=== PATIENT | male | born 1955 | race Caucasian/White ===

== ENCOUNTER 2017-04-13 07:51 | Emergency (ER) | payer MEDICAID ==
[~2017-04-13] VITALS: Ht 175.3 cm; Wt 97.3 kg
[2017-04-13] MEDS ORDERED: LISI-167 PO (08:23)
[2017-04-13] MEDS ORDERED: METF850T2 PO (08:23)
[2017-04-13] MEDS ORDERED: KETOROLAC 30 MG/1 ML ONE (08:25)
[2017-04-13] MEDS ORDERED: KETOROLAC 30 MG/1 ML IM ONE (08:30)
[2017-04-13 09:20] VITALS: BP 110/78
== END 2017-04-13 09:22 | disposition home or self-care (01) ==
LOC: ED 09:16
DX: S39.012A Strain of muscle, fascia and tendon of lower back, initial encounter (principal); M25.552 Pain in left hip; M79.652 Pain in left thigh; M54.16 Radiculopathy, lumbar region; E11.9 Type 2 diabetes mellitus without complications; X58.XXXA Exposure to other specified factors, initial encounter; Y93.89 Activity, other specified; Y92.89 Other specified places as the place of occurrence of the external cause; Y99.8 Other external cause status
CPT/HCPCS: 72110; 96372; 99284; J1885

== ENCOUNTER 2017-05-02 12:16 | Emergency (ER) | payer MEDICAID ==
[~2017-05-02] VITALS: Ht 175.3 cm; Wt 95.8 kg
[~2017-05-02 12:16] MED LIST: LISI-167 PO; METF850T2 PO
[2017-05-02] MEDS ORDERED: MORPHINE SULFATE 4 MG/ML, 1ML IVPush PRN (13:00)
[2017-05-02] MEDS ORDERED: ONDANSETRON 2MG/ML, 2ML IVPush ONE (13:00)
[2017-05-02] MEDS ORDERED: FAMOTIDINE 20 MG/2 ML IVP ONE (13:00)
[2017-05-02 13:26] LABS: ASPARTATE AMINO TRANSFERASE 42 U/L (15-37); BLOOD UREA NITROGEN 32 mg/dL (7-18)
[2017-05-02] MEDS ORDERED: MORPHINE SULFATE 4 MG/ML, 1ML ONE (13:29)
[2017-05-02] MEDS ORDERED: ONDANSETRON 2MG/ML, 2ML ONE (13:29)
[2017-05-02] MEDS ORDERED: FAMOTIDINE 20 MG/2 ML ONE (13:30)
[2017-05-02 13:32] LABS: IS PT STATUS REG ER OR PRE ER? YES
[2017-05-02 13:43] VITALS: BP 114/73
[2017-05-02] MEDS ORDERED: SODIUM CHLORIDE FLUSH 10ML SYR IVF ONE (14:00)
== END 2017-05-02 15:32 | disposition home or self-care (01) ==
LOC: ED 15:15
DX: S60.211A Contusion of right wrist, initial encounter (principal); K29.70 Gastritis, unspecified, without bleeding; I10 Essential (primary) hypertension; E11.9 Type 2 diabetes mellitus without complications; Z87.891 Personal history of nicotine dependence; X50.1XXA Overexertion from prolonged static or awkward postures, initial encounter; Y93.89 Activity, other specified; Y99.8 Other external cause status; Y92.89 Other specified places as the place of occurrence of the external cause
CPT/HCPCS: 36415; 73110; 76700; 80053; 83690; 83880; 84484; 85025; 93005; 96374; 96375; 99285; J2405; S0028

== ENCOUNTER 2017-09-15 01:26 | Emergency (ER) | payer MEDICAID ==
[~2017-09-15] VITALS: Ht 175.3 cm; Wt 98.7 kg
[2017-09-15 01:28] VITALS: BP 146/87
== END 2017-09-15 02:23 | disposition home or self-care (01) ==
LOC: ED 02:17
DX: J20.9 Acute bronchitis, unspecified (principal); J02.9 Acute pharyngitis, unspecified; I10 Essential (primary) hypertension; E11.9 Type 2 diabetes mellitus without complications; Z87.891 Personal history of nicotine dependence
CPT/HCPCS: 99283

== ENCOUNTER 2017-09-19 14:08 | Emergency (ER) | payer MEDICAID ==
[~2017-09-19] VITALS: Ht 175.3 cm; Wt 96.8 kg
[2017-09-19 15:28] LABS: HEMATOCRIT 48.5 % (39.2-51.8); HEMOGLOBIN 16.2 g/dL (13.7-18.0); WHITE BLOOD COUNT 5.9 x10^3/uL (3.4-10)
[2017-09-19 15:36] LABS: BLOOD UREA NITROGEN 17 mg/dL (7-18)
[2017-09-19] MEDS ORDERED: KETOROLAC 30 MG/1 ML ONE (15:55)
[2017-09-19] MEDS ORDERED: KETOROLAC 60 MG/2 ML IM ONE (16:00)
[2017-09-19 16:11] VITALS: BP 124/82
== END 2017-09-19 16:30 | disposition home or self-care (01) ==
LOC: ED 16:20
DX: R51 Headache (principal); I10 Essential (primary) hypertension; E11.9 Type 2 diabetes mellitus without complications
CPT/HCPCS: 36415; 70450; 80048; 82040; 85025; 96372; 99285; J1885

== ENCOUNTER 2019-09-09 18:50 | Emergency (ER) | payer MEDICAID, MEDICARE ==
[~2019-09-09] VITALS: Ht 175.3 cm; Wt 96.1 kg
[~2019-09-09 18:50] MED LIST changes: +METF850T10 PO; -METF850T2 PO
== END 2019-09-09 19:45 | disposition left against medical advice (07) ==
LOC: ED 19:39
DX: K08.89 Other specified disorders of teeth and supporting structures (principal); Z53.21 Procedure and treatment not carried out due to patient leaving prior to being seen by health care provider

== ENCOUNTER 2020-09-15 06:21 | Emergency (ER) | payer MEDICARE, MEDICAID ==
[~2020-09-15] VITALS: Ht 175.3 cm; Wt 99.3 kg
[2020-09-15 06:26] VITALS: BP 125/76
[2020-09-15] MEDS ORDERED: FAMOTIDINE 20 MG TABLET PO ONE (06:30)
[2020-09-15] MEDS ORDERED: FAMOTIDINE 20 MG TABLET ONE (06:35)
[2020-09-15] MEDS ORDERED: hydrOXyzine 50MG TABLET ONE (06:35)
--- NOTE | 2020-09-15 07:52 | NUR ---
PT REC'VD DISCHARGE INSTRUCTIONS AND EDUCATION. PT HAD NO FURTHER QUESTIONS. PT AMBULATED TO DISCHARGE AREA, STEADY GAIT.
== END 2020-09-15 07:56 | disposition home or self-care (01) ==
LOC: ED 07:50
DX: L50.9 Urticaria, unspecified (principal); E11.9 Type 2 diabetes mellitus without complications; I10 Essential (primary) hypertension
CPT/HCPCS: 99284; J7512; Q0177

== ENCOUNTER 2020-09-23 16:19 | Emergency (ER) | payer MEDICARE, MEDICAID ==
[~2020-09-23] VITALS: Ht 175.3 cm; Wt 96.1 kg
[2020-09-23 16:25] VITALS: BP 92/59
--- NOTE | 2020-09-23 16:40 | NUR ---
[facility] # [id number] FOR TRIAGE.
--- NOTE | 2020-09-23 17:15 | NUR ---
Patient/Caregiver given discharge instructions and they have confirmed that they understand the instructions. Patient ambulatory with steady gait.
== END 2020-09-23 17:17 | disposition home or self-care (01) ==
LOC: ED 16:29
DX: J06.9 Acute upper respiratory infection, unspecified (principal); Z20.828 Contact with and (suspected) exposure to other viral communicable diseases; R51.9 Headache, unspecified; I10 Essential (primary) hypertension; E11.9 Type 2 diabetes mellitus without complications
CPT/HCPCS: 87635; 99283